=== PATIENT | female | born 1970 | race Caucasian/White ===

== ENCOUNTER 2022-03-18 08:13 | Outpatient (CLI) | payer MEDICARE, SELFPAY ==
[2022-03-18 13:53] LABS: Iron* 116 ug/dL (37-170)
[2022-03-18 13:58] LABS: Microalbumin Urine 3 mg/dL
[2022-03-18 13:59] LABS: Creatinine Urine 88.7 mg/dL; Microalbumin Creatinine Ratio 30 mg/g (0-30)
[2022-03-18 14:18] LABS: Albumin* 4.3 g/dL (3.3-5.0); Chloride* 103 mmol/L (96-114)
[2022-03-18 14:19] LABS: Potassium* 4.5 mmol/L (3.6-5.1); Sodium* 140 mmol/L (135-149)
[2022-03-18 14:21] LABS: Alkaline Phosphatase* 80 U/L (40-150); Aspartate Amino Transferase* 28 U/L (12-35); Bilirubin Total* 0.5 mg/dL (0.1-1.5); Blood Urea Nitrogen* 25 mg/dL (7-30); Carbon Dioxide* 30 mmol/L (20-32); Cholesterol* 202 mg/dL (90-199); Creatinine* 0.6 mg/dL (0.5-1.5); Estimated Glomerular Filt Rate 109 ml/min; Total Protein* 7.1 g/dL (6.0-8.3)
[2022-03-18 14:22] LABS: Alanine Aminotransferase* 29 U/L (4-35); Calcium* 9.5 mg/dL (8.4-10.6); Glucose* 147 mg/dL (60-115); HDL Cholesterol* 68 mg/dL (>=50); LDL Cholesterol Calculated 107 mg/dL (<100); Triglycerides* 135 mg/dL (40-149)
[2022-03-18 14:27] LABS: Ferritin* 13.4 ng/mL (11.1-264.0)
[2022-03-18 14:44] LABS: Vitamin B12* 880 pg/mL (243-894)
== END 2022-03-18 08:14 | disposition home or self-care (01) ==
PROVIDERS: PCP Family Medicine; Visit Provider Family Medicine
DX: Z00.00 Encounter for general adult medical examination without abnormal findings (principal); D64.9 Anemia, unspecified; I10 Essential (primary) hypertension; N12 Tubulo-interstitial nephritis, not specified as acute or chronic; E11.40 Type 2 diabetes mellitus with diabetic neuropathy, unspecified; E78.00 Pure hypercholesterolemia, unspecified; Z98.84 Bariatric surgery status
CPT/HCPCS: 80053; 80061; 82043; 82570; 82607; 82728; 83540; 87086; 87186

== ENCOUNTER 2022-05-06 12:50 | Outpatient (CLI) | payer MEDICARE, SELFPAY | END 2022-05-06 12:51 | disposition home or self-care (01) | LOC: NFLDREF 05-07 21:56 | PROVIDERS: PCP Family Medicine; Visit Provider Family Medicine | DX: R30.0 Dysuria (principal); E11.40 Type 2 diabetes mellitus with diabetic neuropathy, unspecified; E78.00 Pure hypercholesterolemia, unspecified; D64.9 Anemia, unspecified; G47.00 Insomnia, unspecified; N39.0 Urinary tract infection, site not specified; N95.1 Menopausal and female climacteric states | CPT/HCPCS: 87086; 87186 ==

== ENCOUNTER 2022-06-03 08:11 | Outpatient (CLI) | payer MEDICARE, SELFPAY ==
--- NOTE | 2022-06-03 08:45 | CRLHL7_ITS ---
For Patients: As a result of the Century Cures Act, medical imaging exams and procedure reports are released immediately into your electronic medical record. You may view this report before your referring provider. If you have questions, please contact your health care provider. BILATERAL SCREENING MAMMOGRAM WITH COMPUTER-AIDED DETECTION TECHNIQUE: CC and MLO views were obtained. These mammographic images have been obtained using full-field digital technique. These mammographic images were interpreted with the benefit of computer-aided detection. COMPARISON FILM: 02/20/21, 08/05/18. FINDINGS: The breasts are almost entirely fatty. IMPRESSION: There is no radiographic evidence for malignancy. ASSESSMENT: BI-RADS Category 1: Negative RECOMMENDATION: Routine screening mammogram in 1 year. A lay language report of this examination will be provided to the patient. CARLOS COOPER M.D. Diagnostic Radiologist [email or web address] Transcribed: 3:[address]/Dictated by: Carlos Cooper MD @ 06/11/2022 11:53:00 AM (Electronically Signed)
== END 2022-06-03 08:12 | disposition home or self-care (01) ==
LOC: MAMMO 08:12
PROVIDERS: PCP Family Medicine; Visit Provider Family Medicine
DX: Z12.31 Encounter for screening mammogram for malignant neoplasm of breast (principal)
CPT/HCPCS: 77067

== ENCOUNTER 2022-09-13 07:52 | Outpatient (CLI) | payer MEDICARE, SELFPAY | END 2022-09-13 07:53 | disposition home or self-care (01) | LOC: NFLDREF 09-15 02:21 | PROVIDERS: PCP Family Medicine; Referring Provider Family Medicine; Visit Provider Family Medicine | DX: E11.40 Type 2 diabetes mellitus with diabetic neuropathy, unspecified (principal); E78.00 Pure hypercholesterolemia, unspecified; I10 Essential (primary) hypertension; Z79.899 Other long term (current) drug therapy | CPT/HCPCS: 80053; 80061 ==

== ENCOUNTER 2023-01-06 08:15 | Outpatient (REF) | payer MEDICARE, SELFPAY | END 2023-01-06 08:16 | disposition home or self-care (01) | LOC: NFLDREF 08:15 | PROVIDERS: PCP Family Medicine; Referring Provider Family Medicine; Visit Provider Family Medicine | DX: E78.00 Pure hypercholesterolemia, unspecified (principal); I10 Essential (primary) hypertension; E11.9 Type 2 diabetes mellitus without complications | CPT/HCPCS: 80053; 80061 ==

== ENCOUNTER 2023-03-13 11:29 | Outpatient (CLI) | payer MEDICARE, SELFPAY ==
--- OUTSIDE RECORDS SUMMARY | 2023-03-14 00:53 | XMS_ITS | Encounter Summary ---
Author Name Unknown Organization [facility] Address [address] [place] [id number] Care Team Providers Care Lasting Machine Operator Name Role Phone Jovan Barr MD Primary Care Provider [phone] Encounter Details Date Type Department Care Team (Latest Contact Info) Description 11/06/2022 Travel Social History Tobacco Use Types Packs/Day Years Used Date Smoking Tobacco: Never Assessed Adolescent Education Answer Date Record ed Getting School Help Needed Not on file 11/07 Sex and Gender Information Value Date Recorded Sex Assigned at Not on file Gender Identity Not on file Sexual Orientation Not on file COVID-19 Exposure Response Date Recorded In the last 10 days, have yo u been in contact with someone who was confirmed or suspected to have Coronavirus/COVID-19? No / Unsure 11/06/2022 5:59 PM CDT documented as of this encounter Plan of Treatment Not on file documented as of this encounter Visit Diagnoses Not on filedocumented in this encounter Care Teams Lasting Machine Operator Relationship Specialty Start Date End Date Jovan Barr MD [facility] [address] [address] PCP - General Family Medicine 11/06/22 documented as of this encounter
--- OUTSIDE RECORDS SUMMARY | 2023-03-14 00:53 | XMS_ITS | Clinical Summary ---
Author Name Unknown Organization [facility] Address [place], [place] [address] Care Team Providers Care Drier Name Role Phone Jovan Barr MD Primary Care Provider Allergies Active Allergy Reactions Criticality Noted Date Comments Aspirin *Unknown - Follow up needed Medium 11/01/19 23 Milk *Unknown - Follow up needed High 11/01/19 23 Medications Medication Sig Dispensed Refills Start Date End Date Status carvedilol (COREG) 3.125 mg tab as half tablet Take 6.25 mg by mouth two times daily with meals. 0 Active ciprofloxacin HCl (Cipro) 500 mg tablet Take 500 mg by mouth two times daily. 0 Active ferrous sulfate 325 mg delayed release tablet Take 325 mg by mouth once daily. 0 Active insulin aspart, niacinamide, (FIASP FLEXTOUCH U-100 INSULIN SUBQ) Inject subcutaneous. 1 sliding scale dose subcut - useasdirected 0 Active ixcreptxsyxy-cho-m leelee-FA-vit K (Bariatric Multivitamins) 45 mg iron- 800 mcg-120 mcg cap Take by mouth once daily. 0 Active omeprazole (PRILOSEC) 40 mg Delayed-Release capsule Take 40 mg by mouth once daily. 0 Active rosuvastatin (CRESTOR) 20 mg tablet Take 20 mg by mouth once daily. 0 Active SUMATRIPTAN SUCCINATE ORAL Take by mouth. Take 1 tab at onset of headache, if no relief may repeat 1 tab after at least 2 hours; max 4 tabs/24 hr PO Give at minimum 2hrs apart. Max Dose: 200mg per 24hrs. 0 Active tramadol HCl (TRAMADOL ORAL) Take 50 mg by mouth 2 times daily if needed. 0 Active zolpidem (AMBIEN) 10 mg tablet Take 10 mg by mouth at bedtime if needed for Sleep. 0 Active lisinopriL (PRINIVIL; ZESTRIL) 10 mg tablet Take 10 mg by mouth once daily. 0 Active oxyCODONE (ROXICODONE) 5 mg immediate release tabletIndications: Kidney stone Take 1 Tablet (5 mg) by mouth every 6 hours if needed for Pain. 5 Tablet 0 2022 Active Social History Tobacco Use Types Packs/Day Years Used Date Smoking Tobacco: Never Smokeless Tobacco: Never Sex and Gender Information Value Date Recorded Sex Assigned at Not on file Gender Identity Not on file Sexual Orientation Not on file Obstetrics History Last Filed Vital Signs Vital Sign Reading Time Taken Comments Blood Pressure 177/77 2022 1:56 PM CDT Pulse 69 2022 1:15 PM CDT Temperature 36.3 ??C (97.4 ??F) 2022 1:15 PM CD T Respiratory Rate 16 2022 1:15 PM CDT Oxygen Saturation 98% 2022 1:15 PM CDT Inhaled Oxygen Concentration - - Weight 77.6 kg (171 lb) 2022 7:14 AM CDT Height 170.2 cm (5' 7) 2022 7:14 AM CDT Body Mass Index 26.78 2022 7:14 AM CDT Plan of Treatment Health Maintenance Due Date Last Done Comments COVID-19 vaccine series (#1) 05/02/1971 Tdap 1981 Depression screening for age 12+ 1982 HIV for age 15-65 1985 BMI (ht and wt on same day) for age 18+ 1988 Hepatitis C screening for ag e 18-79 1988 Tetanus booster 1990 Pap test for age 21-65 11/02/1991 Colonoscopy through age 75 11/02/2015 Lipids for age 45-75 11/02/2015 Mammogram for age 45-75 11/02/2015 Zoster (shingles) series for age 50+ (1 of 2) 2020 Influenza for age 50-64 10/11/2022 Pneumococcal series for age 6-64 Aged Out No longer eligible based on patient's age to complete this topic Medical Devices Implanted Type Area Impregnator Helper Device Identifier Shelf Expiration Date Model / Serial / Lot Stent Uret [id number] Percuflex Hydroplus - [id number] Implanted:Qty: 2 on 2022 by Dori Baer MD at [facility] Bilateral: Ureter C Urology 08/05/2025 [id number] / / [id number] Advance Directives Latest Code Status on File Code Status Date Activated Date Inactivated Comments Full Code 2022 1:46 PM 2022 4:11 PM Question Answer Comments Code Status Discussion: Reviewed Preferences Code Status History Code Status Date Activated Date Inactivated Comments Full Code 2022 10:51 AM 2022 1:46 PM Question Answer Comments Code Status Discussion: Unable to Assess Preferences, Provider to review later Full Code 2022 6:53 AM 2022 10:51 AM Shou ld be discussed pre operatively with anesthesia or surgeon Question Answer Comments Code Status Discussion: Not Discussed Care Teams Drier Relationship Specialty Start Date End Date Jovan Barr MD [address] [place] [address] PCP - General Family Practice 10/18/22
--- OUTSIDE RECORDS SUMMARY | 2023-03-14 00:53 | XMS_ITS | Referral Summary ---
Author Name Unknown Organization [facility] Address [address] [place] [address] Care Team Providers Care Public Address Systems Mechanic Name Role Phone Jovan Barr MD Primary Care Provider [phone] Allergies Active Allergy Reactions Criticality Noted Date Comments Aspirin 11/06/2022 Nsaids 11/06/2022 Social History Tobacco Use Types Packs/Day Years Used Date Smoking Tobacco: Never Assessed Adolescent Education Answer Date Record ed Getting School Help Needed Not on file 11/07 Sex and Gender Information Value Date Recorded Sex Assigned at Not on file Gender Identity Not on file Sexual Orientation Not on file Last Filed Vital Signs Vital Sign Reading Time Taken Comments Blood Pressure 122/90 11/06/2022 10:00 PM CDT Pulse 124 11/06/2022 10:00 PM CDT Temperature 36.2 ??C (97.2 ??F) 11/06/2022 6:15 PM CD T Respiratory Rate 18 11/06/2022 6:15 PM CDT Oxygen Saturation 99% 11/06/2022 10:00 PM CDT Inhaled Oxygen Concentration - - Weight - - Height - - Body Mass Index - - Plan of Treatment Not on file Care Teams Public Address Systems Mechanic Relationship Specialty Start Date End Date Jovan Barr MD [facility] [address] [address] PCP - General Family Medicine 11/06/22
--- OUTSIDE RECORDS SUMMARY | 2023-03-14 00:53 | XMS_ITS | Encounter Summary ---
Author Name Unknown Organization [place] Address [facility] [place] [address] Care Team Providers [facility] [employer] Floorperson Name Role Phone Jovan Barr MD Primary Care Provider [phone] Reason for Visit * Reason Comments Post-op Problem Encounter Details Date Type Department Care Team (Late st Contact Info) Description 11/06/2022 6:49 PM CDT - 11/06/2022 10:30 PM CDT Emergency [facility] Emergency Dept [address] [place] [address] Angela Parson MD [facility] [address] [place], [place] [id number] Abdominal pain, unspecified abdominal location Discharge Disposition: Left Against Medical Advice Social History Tobacco Use Types Packs/Day Years [...] PM CDT documented as of this encounter Last Filed Vital Signs Vital Sign Reading Time Taken Comments Blood Pressure 122/90 11/06/2022 10:00 PM CDT Pulse 124 11/06/2022 10:00 PM CDT Temperature 36.2 ??C (97.2 ??F) 11/06/2022 6:15 PM CD T Respiratory Rate 18 11/06/2022 6:15 PM CDT Oxygen Saturation 99% 11/06/2022 10:00 PM CDT Inhaled Oxygen Concentration - - Weight - - Height - - Body Mass Index - - documented in this encounter Discharge Instructions * Discharge Instructions* Angela Parson MD - 11/06/2022 10:17 PM CDT Please follow up with your urologist gloria Your urine is pending. Please check your MyChart for results * Attachments The following attachments cannot be sent through Care Everywhere. * Abdominal Pain (Colombian) documented in this encounter ED Notes * Shani Galan RN - 11/06/2022 10:30 PM CDT Pt left without discharge paperwork * Deedee Garcia MD - 11/06/2022 7:03 PM CDT PIT/Triage Evaluation Patient presented with post operation problem. She reports that she got a kidney stone removal and bilateral stents placed on 11/01/22. Today she had stents removed at 1130. She has been in pain afteran hour and been crying. The pain is on her right flank. No pain on the left side. She reports vomiting and nausea. Denies fever. Exam is notable for: General: No distress Abdomen: Soft, non-tender Respiratory: No tachypnea Cardiovascular: Equal pulses, brisk cap refill Extremities: Moving all extremities Appropriate interventions for symptom management were initiated if applicable. Appropriate diagnostic tests were initiated if indicated. Important information for subsequent clinician: Bilateral ureteral stents pulled today. Labs and imaging are ordered. I briefly evaluated the patient and developed an initial plan of care. I discussed this plan and explained that this brief interaction does not constitute a full evaluation. Patient/family understands that they should wait to be fully evaluated and discuss any test results with another clinician prior to leaving the hospital. Deedee Garcia MD 11/06/22 1909 * Emilia Christianson RN - 11/06/2022 6:13 PM CDT Presents to triage with c/o R flank and R sided abdominal pain. Patient had previous kidney stones and had stents in bilateral kidneys that were removed today. Since that time patient has had severe R flank and abdominal pain and n/v * Angela Parson MD - 11/06/2022 5:59 PM CDT History Chief Complaint: Post-op Problem The history is provided by the patient. Lynda Rios is a 52 year old female with S/P bilateral kidney stone removal who presents to the ED for evaluation of post-op pain. Lynda reports she had bilateral ureteral stents removed today [id number] at [facility]. She states right-sided flank and abdominal pain onsetabout 30 minutes later. She endorses nausea, vomiting, and urinary frequency. She was told by her urologist that the pain won't be severe, but she states the pain has been terrible since the procedure. She denies any hematuria, fever, or urgency. Independent Historian: None - Patient Only Review of External Notes: I reviewed the patient's nephrolithotomy note from 11/01/[address] Baer at [place]. Medications: Coreg Cipro Insulin Prilosec Crestor Prinivil Past Medical History: Type 1 diabetes mellitus with diabetic neuropathy, with long-term current use of insulin Chronic UTI Migraine Chronic shoulder pain Iron deficiency anemia Insomnia Recurrent pyelonephritis Bilateral nephrolithiasis Hypercholesterolemia Hypertension MDD JAROD Hiatal hernia Past Surgical History: Gastric bypass Tubal ligation Lap cholecystectomy Cystoscopy, bilateral ureteroscopy, left ureteral laser lithotripsy, bilateral ureteral stent placement, bilateral retrograde pyelogram Physical Exam Patient Vitals for the past 24 hrs: BP Temp Temp src Pulse Resp SpO2 11/06/22 2200 (!) 122/90 -- -- (!) 124 -- 99 % 11/06/222129 127/88 -- -- 120 -- 98 % 11/06/222128 -- -- -- -- -- 99 % 11/06/222127 -- -- -- -- -- 100 % 11/06/222125 118/87 -- -- -- -- -- 11/06/225 105/72 97.2 ??F (36.2 ??C) Temporal 112 18 99 % Physical Exam Patient declined exam Emergency Department Course Imaging: CT Abdomen Pelvis w/o Contrast Final Result IMPRESSION: 1. Two small bilateral nonobstructing renal stones. No ureteric stones. There is urothelial thickening in the ureters bilaterally as well as renal pelves suggesting ascending infection pyelitis. Mildsoft tissue stranding adjacent to the lower pole of each kidney. 2. Air in the urinary bladder presumably due to recent instrumentation. 3. Normal appendix. Previous Greta-en-Y gastric bypass. Report per radiology Laboratory: Labs Ordered and Resulted from Time of ED Arrival to Time of ED Departure COMPREHENSIVE METABOLIC PANEL - Abnormal Result Value Sodium 132 (*) Potassium 5.8 (*) Carbon Dioxide (CO2) 23 Anion Gap 14 Urea Nitrogen 28.0 (*) Creatinine 0.83 GFR Estimate 84 Calcium 9.1 Chloride 95 (*) Glucose 208 (*) Alkaline Phosphatase AST ALT Protein Total 7.1 Albumin 4.2 Bilirubin Total 0.3 CBC WITH PLATELETS AND DIFFERENTIAL - Abnormal WBC Count 9.7 RBC Count 5.24 (*) Hemoglobin 16.0 (*) Hematocrit 47.6 (*) MCV 91 MCH 30.5 MCHC 33.6 RDW 11.5 Platelet Count 348 % Neutrophils 69 % Lymphocytes 21 % Monocytes 9 % Eosinophils 1 % Basophils 0 % Immature Granulocytes 0 NRBCs per 100 WBC 0 Absolute Neutrophils 6.7 Absolute Lymphocytes 2.1 Absolute Monocytes 0.9 Absolute Eosinophils 0.1 Absolute Basophils 0.0 Absolute Immature Granulocytes 0.0 Absolute NRBCs 0.0 COMPREHENSIVE METABOLIC PANEL - Abnormal Sodium 130 (*) Potassium 7.4 (*) Carbon Dioxide (CO2) 24 Anion Gap 10 Urea Nitrogen 28.6 (*) Creatinine 0.81 GFR Estimate 87 Calcium 9.0 Chloride 96 (*) Glucose 215 (*) Alkaline Phosphatase AST ALT Protein Total 7.5 Albumin 4.0 Bilirubin Total 0.4 COMPREHENSIVE METABOLIC PANEL - Abnormal Sodium 133 (*) Potassium 4.7 Carbon Dioxide (CO2) 24 Anion Gap 13 Urea Nitrogen 28.7 (*) Creatinine 0.86 GFR Estimate 81 Calcium 9.3 Chloride 96 (*) Glucose 215 (*) Alkaline Phosphatase 121 (*) AST 19 ALT 21 Protein Total 7.1 Albumin 4.5 Bilirubin Total 0.3 ROUTINE UA WITH MICROSCOPIC REFLEX TO CULTURE Procedures None Emergency Department Course & Assessments: Interventions: Medications ondansetron (ZOFRAN) injection 4 mg (4 mg Intravenous $Given 11/06/22 182) ondansetron (ZOFRAN) injection 4 mg (4 mg Intravenous $Given 11/06/222134) sodium chloride 0.9% BOLUS 1,000 mL (0 mLs Intravenous Stopped 11/06/222228) HYDROmorphone (DILAUDID) injection 1 mg (0 mg Intravenous Return to Cabinet 11/06/222229) Assessments: 2204 I obtained history as noted above. The patient denies exam and is requesting to leave [facility] due to long wait time. She will provide urine for UA and go home. She will check her MyChart for resultsof her UA. Independent Interpretation (X-rays, CTs, rhythm strip): None Consultations/Discussion of Management or Tests: None Social Determinants of Health affecting care: None Disposition: The patient left A. Impression & Plan Medical Decision Making: Upon initial evaluation, patient was requesting discharge given the long wait time. I reviewed the results with her but she did not want to wait for the urinalysis. Given that she is having severe pain and tachycardia, she did agree to leave a urine sample but did not want to wait for IV pain medication with the results. She is aware that this could be an infection given the CT appearance. She told us the name of the pharmacy and I agreed to send a prescription to the pharmacy showed infection shows up on the urine. She voiced understanding she needs to follow-up with urologist GLORIA. She declined any further intervention at this point. I discussed with her that she needs to return if symptoms worsen or if she has fever. She is discharged at her request without results. Her urinalysis did come back showing signs of infection. I did send an electronic prescription of cefdinir. I attemptedto call the patient with the results but the call went to her voicemail. Diagnosis: ICD-10-CM 1. Abdominal pain, unspecified abdominal location R10.9 Discharge Medications: There are no discharge medications for this patient. Scribe Disclosure: Sergio Chavarria Hailie, am serving as a scribe at 10:09 PM on 11/06/2022 to document services personally performed by Angela Parson MD based on my observations and the provider's statements to me. 11/06/2022 Angela Parson MD Cheng, Wenlan, MD 11/06/22 [id number] documented in this encounter Plan of Treatment Not on file documented as of this encounter Procedures Procedure Name Priority Date/Time Associated Diagnosis Comments ROUTINE UA WITH MICROSCOPIC REFLEX TO CULTURE STAT 11/06/2022 10:12 PM CDT URINE CULTURE STAT 11/06/2022 10:12 PM CDT COMPREHENSIVE METABOLIC PANEL STAT 11/06/2022 8:[address] ABDOMEN PELVIS W/O CONTRAST STAT 11/06/2022 7:36 PM CDT COMPREHENSIVE METABOLIC PANEL STAT 11/06/2022 7:22 PM CDT EXTRA TUBE STAT 11/06/2022 6:23 PM CDT EXTRA RED TOP TUBE STAT 11/06/2022 6: 23 PM CDT EXTRA BLUE TOP TUBE STAT 11/06/2022 6 :23 PM CDT CBC WITH PLATELETS AND DIFFERENTIAL STAT 11/06/2022 6:23 PM CDT CBC WITH PLATELETS & DIFFERENTIAL STAT 11/06/2022 6:23 PM CDT COMPREHENSIVE METABOLIC PANEL STAT 11/06/2022 6:23 PM CDT documented in this encounter Results * Urine Culture (11/06/2022 10:12 PM CDT) Culture <10,000 CFU/mL Urogenital nicole GENIE 11/08/2022 5:15 AM CDT [facility] Urine URINE SPECIMEN OBTAINED BY CLEAN CATCH PROCEDURE / Unknown Non-blood Collection / Unknown 11/06/2022 10:12 PM CDT 11/06/2022 10:50 PM CDT Edi Foster MD LAB - MICRO GENERAL ORDERABLES [facility] Inf. Diseases Diag. Lab [address] [facility], Room [address] [place] [id number] [phone] * (ABNORMAL) UA with Microscopic reflex to Culture (11/06/2022 10:12 PM CDT) Color Urine [place](A) Colorless, Straw, Light Yellow, Yellow 11/06/2022 10:50 PM CDT LABORATORY Appearance Urine Cloudy(A) Clear 11/07/19 23 10:50 PM CDT LABORATORY Glucose Urine 30(A) Negative mg/dL 11/06/2022 10:50 PM CDT LABORATORY Bilirubin Urine Negative Negative 10:50 PM CDT LABORATORY Ketones Urine 20(A) Negative mg/dL 11/06/2022 10:50 PM CDT LABORATORY Specific [place] Urine 1.020 1.003 - 1.035 11/06/2022 10:50 PM CDT LABORATORY Blood Urine Large(A) Negative 11/06/2022 10:50 PM CDT LABORATORY pH Urine 6.0 5.0 - 7.0 11/06/2022 10:50 PM CDT LABORATORY Protein Albumin Urine 200(A) Negative mg/dL 11/06/2022 10:50 PM CDT LABORATORY Urobilinogen Urine Normal Normal, 2.0 mg/dL 11/06/2022 10:50 PM CDT LABORATORY Nitrite Urine Negative Negative 11/06/2022 10:50 PM CDT LABORATORY Leukocyte Esterase Urine Moderate(A) Negative 11/06/2022 10:50 PM CDT LABORATORY WBC Clumps Urine Present(A) None Seen /HPF 11/06/2022 10:50 PM CDT LABORATORY Budding Yeast Urine Few(A) None Seen /HPF 11/06/2022 10:50 PM CDT [facility] RBC Urine >182(H) <=2 /HPF 11/06/2022 10:50 PM CDT [facility] WBC Urine >182(H) <=5 /HPF 11/06/2022 10:50 PM CDT [facility] Urine URINE SPECIMEN OBTAINED BY CLEAN CATCH PROCEDURE / Unknown Non-blood Collection / Unknown 11/06/2022 10:12 PM CDT 11/06/2022 10:16 PM CDT Narrative [facility] - 11/06/2022 10:50 PM CDT Urine Culture ordered based on laboratory criteria Edi Foster MD LAB - URINE ORDERABL ES LABORATORY [facility] Lab [address] [facility] (1st [facility], no room number) [place] [address], [facility] [phone] * (ABNORMAL) Comprehensive metabolic panel (11/06/2022 8:10 PM CDT) [facility] Signature Sodium 133(L) 135 - 145 mmol/L 11/06/2022 8:39 PM CDT [facility] Comment:Reference intervals for this test were updated on 11/05/2022 to more accurately reflect our healthy population. There may be differences in the flagging of prior results with similar values performed with this method. Interpretation of those prior results can be made in the context of the updated reference intervals. Potassium 4.7 3.4 - 5.3 mmol/L 11/06/2022 8:39 PM CDT LABORATORY Carbon Dioxide (CO2) 24 22 - 29 mmol/L 11/06/2022 8:39 PM CDT [facility] Anion Gap 13 7 - 15 mmol/L 11/06/2022 8:39 PM CDT [facility] Urea Nitrogen 28.7(H) 6.0 - 20.0 mg/dL 11/06/2022 8:39 PM CDT [facility] Creatinine 0.86 0.51 - 0.95 mg/dL 11/06/2022 8:39 PM CDT [facility] GFR Estimate 81 >60 mL/min/1. 73m2 11/06/2022 8:39 PM CDT [facility] Calcium 9.3 8.6 - 10.0 mg/dL 11/06/2022 8:39 PM CDT [facility] Chloride 96(L) 98 - 107 mmol/L 11/06/2022 8:39 PM CDT [facility] Glucose 215(H) 70 - 99 mg/dL 11/06/2022 8:39 PM CDT [facility] Alkaline Phosphatase 121(H) 35 - 104 U/L 11/06/2022 8:39 PM CDT [facility] AST 19 0 - 45 U/L 11/06/2022 8:39 PM CDT [facility] Comment:Reference intervals for this test were updated on 07/22/2022 to more accurately reflect our healthy population. There may be differences in the flagging of prior results with similar values performed with this method. Interpretation of those prior results can be made in the context of the updated reference intervals. ALT 21 0 - 50 U/L 11/06/2022 8:39 PM CDT [facility] Comment:Reference intervals for this test were updated on 07/22/2022 to more accurately reflect our healthy population. There may be differences in the flagging of prior results with similar values performed with this method. Interpretation of those prior results can be made in the context of the updated reference intervals. Protein Total 7.1 6.4 - 8.3 g/dL 11/06/2022 8:39 PM CDT [facility] Albumin 4.5 3.5 - 5.2 g/dL 11/06/2022 8:39 PM CDT [facility] Bilirubin Total 0.3 <=1.2 mg/dL 11/06/2022 8:39 PM CDT [facility] Blood STRUCTURE OF RIGHT UPPER LIMB / Unknown Venipuncture / Unknown 11/06/2022 8:10 PM CDT 11/06/2022 8:18 PM CDT Angela Parson MD LAB - BLOOD ORDERABL ES LABORATORY [facility] Acute Care Lab [address] [facility] (1st floor, no room number) [place] [address], [place] [phone] * CT Abdomen Pelvis w/o Contrast (11/06/2022 7:36 PM CDT) Anatomical Region Laterality Modality Abdomen/Pelvis, SUBRAD CT CARIN DY, UMP CT ABDOMEN PELVIS, RAD CT Computed Tomography 11/06/2022 7:36 PM CDT Impressions 11/06/2022 7:55 PM CDT IMPRESSION: 1. ??Two small bilateral nonobstructing renal stones. No ureteric stones. There is urothelial thickening in the ureters bilaterally as well as renal pelves suggesting ascending infection pyelitis. Mild soft tissue stranding adjacent to the lower pole of each kidney. 2. ??Air in the urinary bladder presumably due to recent instrumentation. 3. ??Normal appendix. Previous Greta-en-Y gastric bypass. Narrative 11/06/2022 7:55 PM CDT EXAM: CT ABDOMEN PELVIS W/O CONTRAST LOCATION: [facility] DATE: 11/06/2022 INDICATION: ureter stents removed worsening pain COMPARISON: None. TECHNIQUE: CT scan of the abdomen and pelvis was performed without IV contrast. Multiplanar reformats were obtained. Dose reduction techniques were used. CONTRAST: None. FINDINGS: LOWER CHEST: Normal. HEPATOBILIARY: Normal. PANCREAS: Normal. SPLEEN: Normal. ADRENAL GLANDS: Normal. KIDNEYS/BLADDER: 3 mm stone in the upper pole of the right kidney. Tiny punctate stone in the mid left kidney. There are a few additional tiny punctate stones in the right kidney. Urothelial thickening in the ureters and renal pelves bilaterally suggest possible pyelitis. Soft tissue stranding adjacent to the lower poles of each kidney. BOWEL: Normal appendix. Greta-en-Y gastric bypass. LYMPH NODES: Normal. VASCULATURE: Unremarkable. PELVIC ORGANS: Air in the urinary bladder presumably due to recent ischemic dilatation. MUSCULOSKELETAL: Normal. Procedure Note Jerardo Parson MD - 11/06/2022 EXAM: CT ABDOMEN PELVIS W/O CONTRAST LOCATION: [facility] DATE: 11/06/2022 INDICATION: ureter stents removed worsening pain COMPARISON: None. TECHNIQUE: CT scan of the abdomen and pelvis was performed without IVcontrast. Multiplanar reformats were obtained. Dose reduction techniqueswere used. CONTRAST: None. FINDINGS: LOWER CHEST: Normal. HEPATOBILIARY: Normal. PANCREAS: Normal. SPLEEN: Normal. ADRENAL GLANDS: Normal. KIDNEYS/BLADDER: 3 mm stone in the upper pole of the right kidney. Tinypunctate stone in the mid left kidney. There are a few additional tinypunctate stones in the right kidney. Urothelial thickening in the uretersand renal pelves bilaterally suggest possible pyelitis. Soft tissue stranding adjacent to the lower poles ofeach kidney. BOWEL: Normal appendix. Greta-en-Y gastric bypass. LYMPH NODES: Normal. VASCULATURE: Unremarkable. PELVIC ORGANS: Air in the urinary bladder presumably due to recentischemic dilatation. MUSCULOSKELETAL: Normal. IMPRESSION: 1. Two small bilateral nonobstructing renal stones. No ureteric stones.There is urothelial thickening in the ureters bilaterally as well as renalpelves suggesting ascending infection pyelitis. Mild soft tissue strandingadjacent to the lower pole of each kidney. 2. Air in the urinary bladder presumably due to recent instrumentation. 3. Normal appendix. Previous Greta-en-Y gastric bypass. Edi Foster MD [facility] CT ORDERABLES * (ABNORMAL) Comprehensive metabolic panel (11/06/2022 7:22 PM CDT) [facility] Sodium 130(L) 135 - 145 mmol/L 11/06/2022 8:03 PM CDT LABORATORY Comment:Reference intervals for this test were updated on 11/05/2022 to more accurately reflect our healthy population. There may be differences in the flagging of prior results with similar values performed with this method. Interpretation of those prior results can be made in the context of the updated reference intervals. Potassium 7.4(HH) 3.4 - 5.3 mmol/L 11/06/2022 8:03 PM CDT LABORATORY Comment:Specimen moderately hemolyzed. The reported potassium value *IS LIKELY TO BE FALSELY ELEVATED* and should be interpreted with caution for clinical decision making. Analysis of a non-hemolyzed specimen (i.e. re-draw) may result in a lower potassium value. Carbon Dioxide (CO2) 24 22 - 29 mmol/L 11/06/2022 8:03 PM CDT [facility] Anion Gap 10 7 - 15 mmol/L 11/06/2022 8:03 PM CDT LABORATORY Urea Nitrogen 28.6(H) 6.0 - 20.0 mg/dL 11/06/2022 8:03 PM CDT LABORATORY Creatinine 0.81 0.51 - 0.95 mg/dL 11/06/2022 8:03 PM CDT [facility] GFR Estimate 87 >60 mL/min/1. 73m2 11/06/2022 8:03 PM CDT [facility] Calcium 9.0 8.6 - 10.0 mg/dL 11/06/2022 8:03 PM CDT [facility] Chloride 96(L) 98 - 107 mmol/L 11/06/2022 8:03 PM CDT [facility] Glucose 215(H) 70 - 99 mg/dL 11/06/2022 8:03 PM CDT [facility] Alkaline Phosphatase 11/06/2022 8:03 PM CDT [facility] Comment:Specimen is hemolyze d which can falsely elevate AST. Analysis of a non-hemolyzed specimen may result in a lower value. AST 11/06/2022 8:03 PM CDT [facility] Comment: Specimen is hemolyzed which can falsely elevate AST. Analysis of a non-hemolyzed specimen may result in a lower value. Reference intervals for this test were updated on 07/22/2022 to more accurately reflect our healthy population. There may be differences in the flagging of prior results with similar values performed with this method. Interpretation of those prior results can be made in the context of the updated reference intervals. ALT 11/06/2022 8:03 PM CDT [facility] Comment: Specimen is hemolyzed which can falsely elevate AST. Analysis of a non-hemolyzed specimen may result in a lower value. Reference intervals for this test were updated on 07/22/2022 to more accurately reflect our healthy population. There may be differences in the flagging of prior results with similar values performed with this method. Interpretation of those prior results can be made in the context of the updated reference intervals. ?? Protein Total 7.5 6.4 - 8.3 g/dL 11/06/2022 8:03 PM CDT [facility] Albumin 4.0 3.5 - 5.2 g/dL 11/06/2022 8:03 PM CDT [facility] Bilirubin Total 0.4 <=1.2 mg/dL 11/06/2022 8:03 PM CDT [facility] Blood VENOUS LINE / Unknown Venipuncture / Unknown 11/06/2022 7:22 PM CDT 11/06/2022 7:26 PM CDT Deedee Garcia MD LAB - BLOOD LEEANN DYER [facility] Care Lab [address] Lab (1st floor, no room number) [place] [address], [facility] [phone] * Extra Red Top Tube (11/06/2022 6:23 PM CDT) Hold Specimen [facility] 11/06/2022 7:31 PM CDT [facility] Blood STRUCTURE OF LEFT UPPER LIMB / Unknown Venipuncture / Unknown 11/06/2022 6:23 PM CDT 11/06/2022 6:30 PM CDT Angela Parson MD LAB - BLOOD ORDERABL ES Performing Organization Address [facility]/ZIP Co de Phone Number [facility] Lab [address] Lab (1st floor, no room number) [place] [address], [facility] [phone] * Extra Blue Top Tube (11/06/2022 6:23 PM CDT) Hold Specimen [facility] 11/06/2022 7:31 PM CDT [facility] Blood STRUCTURE OF LEFT UPPER LIMB / Unknown Venipuncture / Unknown 11/06/2022 6:23 PM CDT 11/06/2022 6:30 PM CDT Angela Parson MD LAB - BLOOD ORDERABL ES Performing Organization Address City/[facility]/ZIP Co de Phone Number [facility] Care Lab [address] Lab (1st floor, no room number) [place] [address], [facility] [phone] * (ABNORMAL) CBC with platelets and differential (11/06/2022 6:23 PM CDT) WBC Count 9.7 4.0 - 11.0 10e3/uL 11/06/2022 6:45 PM CDT [facility] RBC Count 5.24(H) 3.80 - 5.20 10e6/uL 11/06/2022 6:45 PM CDT [facility] Hemoglobin 16.0(H) 11.7 - 15.7 g/dL 11/06/2022 6:45 PM CDT [facility] Hematocrit 47.6(H) 35.0 - 47.0 % 11/06/2022 6:45 PM CDT [facility] MCV 91 78 - 100 fL 11/06/2022 6:45 PM CDT [facility] MCH 30.5 26.5 - 33.0 pg 11/06/2022 6:45 PM CDT [facility] MCHC 33.6 31.5 - 36.5 g/dL 11/06/2022 6:45 PM CDT [facility] RDW 11.5 10.0 - 15.0 % 11/06/2022 6:45 PM CDT [facility] Platelet Count 348 150 - 450 10e3/uL 11/06/2022 6:45 PM CDT [facility] % Neutrophils 69 % 11/06/2022 6:45 PM CDT [facility] % Lymphocytes 21 % 11/06/2022 6:45 PM CDT [facility] % Monocytes 9 % 11/06/2022 6:45 PM CDT [facility] % Eosinophils 1 % 11/06/2022 6:45 PM CDT [facility] % Basophils 0 % 11/06/2022 6:45 PM CDT [facility] % Immature Granulocytes 0 % 11/06/2022 6:45 PM CDT [facility] NRBCs per 100 WBC 0 <1 /100 023 6:45 PM CDT [facility] Absolute Neutrophils 6.7 1.6 - 8.3 10e3/uL 11/06/2022 6:45 PM CDT [facility] Absolute Lymphocytes 2.1 0.8 - 5.3 10e3/uL 11/06/2022 6:45 PM CDT [facility] Absolute Monocytes 0.9 0.0 - 1.3 10e3/uL 11/06/2022 6:45 PM CDT [facility] Absolute Eosinophils 0.1 0.0 - 0.7 10e3/uL 11/06/2022 6:45 PM CDT [facility] Absolute Basophils 0.0 0.0 - 0.2 10e3/uL 11/06/2022 6:45 PM CDT [facility] Absolute Immature Granulocytes 0.0 <=0.4 10e3/uL 11/06/2022 6:45 PM CDT [facility] Absolute NRBCs 0.0 10e3/uL 11/06/2022 6:45 PM CDT [facility] Blood BLOOD SPECIMEN / Unknown Venipuncture / Unknown 11/06/2022 6:23 PM CDT 11/06/2022 6:30 PM CDT Angela Parson MD LAB - BLOOD ORDERABL ES [facility] Acute Care Lab [address] [facility] Lab (1st floor, no room number) [place] [address], [facility] [facility] [phone] * (ABNORMAL) Comprehensive metabolic panel (11/06/2022 6:23 PM CDT) Sodium 132(L) 135 - 145 mmol/L 11/06/2022 7:11 PM CDT [facility] Comment:Reference intervals for this test were updated on 11/05/2022 to more accurately reflect our healthy population. There may be differences in the flagging of prior results with similar values performed with this method. Interpretation of those prior results can be made in the context of the updated reference intervals. Potassium 5.8(H) 3.4 - 5.3 mmol/L 11/06/2022 7:11 PM CDT [facility] Comment:Specimen moderately hemolyzed. The reported potassium value *IS LIKELY TO BE FALSELY ELEVATED* and should be interpreted with caution for clinical decision making. Analysis of a non-hemolyzed specimen (i.e. re-draw) may result in a lower potassium value. Carbon Dioxide (CO2) 23 22 - 29 mmol/L 11/06/2022 7:11 PM CDT [facility] Anion Gap 14 7 - 15 mmol/L 11/06/2022 7:11 PM CDT [facility] Urea Nitrogen 28.0(H) 6.0 - 20.0 mg/dL 11/06/2022 7:11 PM CDT [facility] Creatinine 0.83 0.51 - 0.95 mg/dL 11/06/2022 7:11 PM CDT [facility] GFR Estimate 84 >60 mL/min/1. 73m2 11/06/2022 7:11 PM CDT [facility] Calcium 9.1 8.6 - 10.0 mg/dL 11/06/2022 7:11 PM CDT [facility] Chloride 95(L) 98 - 107 mmol/L 11/06/2022 7:11 PM CDT [facility] Glucose 208(H) 70 - 99 mg/dL 11/06/2022 7:11 PM CDT [facility] Alkaline Phosphatase 11/06/2022 7:11 PM CDT [facility] Comment:Specimen is hemolyze d which can falsely elevate AST. Analysis of a non-hemolyzed specimen may result in a lower value. AST 11/06/2022 7:11 PM CDT [facility] Comment: Specimen is hemolyzed which can falsely elevate AST. Analysis of a non-hemolyzed specimen may result in a lower value. Reference intervals for this test were updated on 07/22/2022 to more accurately reflect our healthy population. There may be differences in the flagging of prior results with similar values performed with this method. Interpretation of those prior results can be made in the context of the updated reference intervals. ALT 11/06/2022 7:11 PM CDT [facility] Comment: Specimen is hemolyzed which can falsely elevate AST. Analysis of a non-hemolyzed specimen may result in a lower value. Reference intervals for this test were updated on 07/22/2022 to more accurately reflect our healthy population. There may be differences in the flagging of prior results with similar values performed with this method. Interpretation of those prior results can be made in the context of the updated reference intervals. ?? Protein Total 7.1 6.4 - 8.3 g/dL 11/06/2022 7:11 PM CDT [facility] Albumin 4.2 3.5 - 5.2 g/dL 11/06/2022 7:11 PM CDT [facility] Bilirubin Total 0.3 <=1.2 mg/dL 11/06/2022 7:11 PM CDT [facility] Blood BLOOD SPECIMEN / Unknown Venipuncture / Unknown 11/06/2022 6:23 PM CDT 11/06/2022 6:30 PM CDT Angela Parson MD LAB - BLOOD ORDERABL ES [facility] Lab [address] [facility] Lab (1st floor, no room number) [place] [address], [facility] [phone] documented in this encounter Visit Diagnoses Diagnosis Abdominal pain, unspecified abdominal location documented in this encounter Administered Medications Inactive Administered Medications - up to 3 most recent administrations Medication Order MAR Action Action Date Dose Rate Site ondansetron (ZOFRAN) injection 4 mg 4 mg, Intravenous, ONCE, Administer over 2-5 Minutes, On Fri11/06/22 at 1825, For 1 dose, Irritant. $Given 11/06/2022 6:25 PM CDT 4 mg ondansetron (ZOFRAN) injection 4 mg 4 mg, Intravenous, ONCE, Administer over 2-5 Minutes, On Fri11/06/22 at 2135, For 1 dose, Irritant. $Given 11/06/2022 9:35 PM CDT 4 mg sodium chloride 0.9% BOLUS 1,000 mL Intravenous, 1,000 mL, ONCE, at 1,000 mL/hr, Administer over 1 Hours, On Fri11/06/22 at 2205, For 1 dose $New Bag 11/06/2022 10:03 PM CDT 1,000 mLs 1000 mL/hr documented in this encounter Active and Recently Administered Medications Times are shown in CDT. Scheduled Medication Order 11/04/2022 11/05/2022 11/06/2022 ondansetron (ZOFRAN) injection 4 mg (COMPLETED) 4 mg, Intravenous, ONCE, Administer over 2-5 Minutes, On Fri11/06/22 at 1825, For 1 dose, Irritant. 1824 ($Given - Provi krystle: Emilia Christianson RN) ondansetron (ZOFRAN) injection 4 mg (COMPLETED) 4 mg, Intravenous, ONCE, Administer over 2-5 Minutes, On Fri11/06/22 at 2135, For 1 dose, Irritant. 2134 ($Given - Provi krystle: Shani Galan RN) sodium chloride 0.9% BOLUS 1,000 mL (COMPLETED) Intravenous, 1,000 mL, ONCE, at 1,000 mL/hr, Administer over 1 Hours, On Fri11/06/22 at 2205, For 1 dose 2202 ($New Bag - Pro vider: Shani Galan RN)2228 (Stopped - Provider: Shani Galan RN) documented in this encounter Care Teams Hotel Casino Floorperson Relationship Specialty Start Date End Date Jovan Barr MD [facility] [address] [address] PCP - General Family Medicine 11/06/22 documented as of this encounter
--- OUTSIDE RECORDS SUMMARY | 2023-03-14 00:53 | XMS_ITS | Clinical Summary ---
Author Name Unknown Organization [place] Address [address] [place] [address] Care Team Providers Care Mechanical Design Engineer Facilities Name Role Phone Jovan Barr MD Primary [...] Mass Index - - Plan of Treatment Health Maintenance Due Date Last Done Comments ADVANCE CARE PLANNING 1970 ANNUAL REVIEW OF HM ORDERS 1970 CT COLONOGRAPHY 1970 FIT 1970 FLEX SIG 1970 HEPATITIS B IMMUNIZATION (1 of 3 - 3-dose series) 1970 MAMMO SCREENING 1970 sDNA (Cologuard) 1970 COVID-19 Vaccine (#1) 05/02/1971 COLONOSCOPY 1980 COLORECTAL CANCER SCREENING 1980 HIV SCREENING 1985 HEPATITIS C SCREENING 1988 MEDICARE ANNUAL WELLNESS VISIT 1988 PAP 11/02/1991 DTAP/TDAP/TD IMMUNIZATION (1 - Tdap) 11/02/1995 LIPID 11/02/2015 ZOSTER IMMUNIZATION (1 of 2) 2020 INFLUENZA VACCINE (#1) 2022 PHQ-2 (once per calendar year) 2023 HPV IMMUNIZATION Aged Out No longer e ligible based on patient's age to complete this topic IPV IMMUNIZATION Aged Out No longer e ligible based on patient's age to complete this topic MENINGITIS IMMUNIZATION Aged Out No l onger eligible based on patient's age to complete this topic Pneumococcal Vaccine: Pediat rics (0 to 5 Years) and At-Risk Patients (6 to 64 Years) Aged Out No longer eligi ble based on patient's age to complete this topic RSV MONOCLONAL ANTIBODY Aged Out No l onger eligible based on patient's age to complete this topic Care Teams Mechanical Design Engineer Facilities Relationship Specialty Start Date End Date Jovan Barr MD [facility] [address] [address] PCP - General Family Medicine 11/06/22
== END 2023-03-13 11:30 | disposition home or self-care (01) ==
LOC: NFLDREF 03-14 00:50
PROVIDERS: PCP Family Medicine; Referring Provider Family Medicine; Visit Provider Family Medicine
DX: E10.40 Type 1 diabetes mellitus with diabetic neuropathy, unspecified (principal); I10 Essential (primary) hypertension; E61.1 Iron deficiency; Z79.899 Other long term (current) drug therapy; Z98.84 Bariatric surgery status; Z13.21 Encounter for screening for nutritional disorder
CPT/HCPCS: 80053; 82306; 82607; 83540; 84443

== ENCOUNTER 2023-04-17 14:23 | Outpatient (CLI) | payer MEDICARE, SELFPAY | END 2023-04-17 14:24 | disposition home or self-care (01) | LOC: NFLDREF 04-30 07:50 | PROVIDERS: PCP Family Medicine; Referring Provider Family Medicine; Visit Provider Family Medicine | DX: E10.40 Type 1 diabetes mellitus with diabetic neuropathy, unspecified (principal); N39.0 Urinary tract infection, site not specified; I10 Essential (primary) hypertension; D64.9 Anemia, unspecified | CPT/HCPCS: 80076; 82043; 82570 ==

== ENCOUNTER 2023-05-02 13:39 | Outpatient (CLI) | payer MEDICARE, SELFPAY | END 2023-05-02 13:40 | disposition home or self-care (01) | LOC: NFLDREF 05-05 06:15 | PROVIDERS: PCP Family Medicine; Referring Provider Family Medicine; Visit Provider Family Medicine | DX: E10.40 Type 1 diabetes mellitus with diabetic neuropathy, unspecified (principal); N39.0 Urinary tract infection, site not specified; R05.9 Cough, unspecified; R32 Unspecified urinary incontinence; J06.9 Acute upper respiratory infection, unspecified | CPT/HCPCS: 87086; 87186 ==

== ENCOUNTER 2023-05-13 17:37 | Outpatient (CLI) | payer MEDICARE, SELFPAY | END 2023-05-13 17:38 | disposition home or self-care (01) | LOC: LKVREF 17:38 | PROVIDERS: PCP Family Medicine; Visit Provider Emergency Medicine | DX: N39.0 Urinary tract infection, site not specified (principal); N12 Tubulo-interstitial nephritis, not specified as acute or chronic | CPT/HCPCS: 87086 ==

== ENCOUNTER 2023-06-16 18:48 | Outpatient (CLI) | payer MEDICARE, SELFPAY ==
--- OUTSIDE RECORDS SUMMARY | 2023-06-16 18:58 | XMS_ITS | Clinical Summary ---
Author Name Unknown Organization [place] Address [address] [place] [address] Care Team Providers Care Director Validation Name Role Phone Jovan Barr MD Primary Care Provider [phone] Allergies Active Allergy Reactions Criticality Noted Date [...] COLONOGRAPHY 1970 FIT 1970 FLEX SIG 1970 MAMMO SCREENING 1970 sDNA (Cologuard) 1970 COLONOSCOPY 1980 COLORECTAL CANCER SCREENING 1980 HIV SCREENING 1985 HEPATITIS C SCREENING 1988 MEDICARE ANNUAL WELLNESS VISIT 1988 HEPATITIS B IMMUNIZATION (1 of 3 - 19+ 3-dose series) 1989 PAP 11/02/1991 DTAP/TDAP/TD IMMUNIZATION (1 - Tdap) 11/02/1995 LIPID 2010 ZOSTER IMMUNIZATION (1 of 2) 2020 COVID-19 Vaccine (1 - 2022-2 4 season) 2022 PHQ-2 (once per calendar year) 2023 INFLUENZA VACCINE (Season Ended) 2023 GLUCOSE 11/06/2025 11/06/2022, 11/06/2022, 11/06/2022 HPV IMMUNIZATION Aged Out No longer e ligible based on patient's age to complete this topic IPV IMMUNIZATION Aged Out No longer e ligible based on patient's age to complete this topic MENINGITIS IMMUNIZATION Aged Out No l onger eligible based on patient's age to complete this topic Pneumococcal Vaccine: Pediatrics (0 to 5 Years) and At-Risk Patients (6 to 64 Years) Aged Out No longer eligible b ased on patient's age to complete this topic RSV MONOCLONAL ANTIBODY Aged Out No l onger eligible based on patient's age to complete this topic Procedures Procedure Name Priority Date/Time Associated Diagnosis Comments COMPREHENSIVE METABOLIC PANEL STAT 11/06/2022 6:23 PM CDT from Last 3 Months or Most Recently Relevant to Health Maintenance Results * (ABNORMAL) Comprehensive metabolic panel (11/06/2022 6:23 [...] LAB - BLOOD ORDERABL ES [facility] Acute Care Lab [address] Lab (1st floor, no room number) [place] [address], [facility] [phone] from Last 3 Months or Most Recently Relevant to Health Maintenance Care Teams Director Validation Relationship Specialty Start Date End Date Jovan Barr MD [facility] [address] [address] PCP - General Family Medicine 11/06/22
--- OUTSIDE RECORDS SUMMARY | 2023-06-16 18:58 | XMS_ITS | Clinical Summary ---
Author Name Unknown Organization [facility] [employer] Address [place], [place] [address] Care Team Providers Care Recoater Name Role Phone Jovan Barr MD Primary Care Provider [phone] Allergies Active Allergy Reactions Criticality Noted Date Comments Aspirin *Unknown - Follow up needed Medium 11/01/19 23 Milk *Unknown - Follow up needed High 11/01/19 23 Medications Medication Sig Dispensed Refills Start Date End Date Status carvedilol (COREG) 3.125 mg tab as half tablet Take 6.25 mg by mouth two times daily with meals. Active ciprofloxacin HCl (Cipro) 500 mg tablet Take 500 mg by mouth two times daily. Active ferrous sulfate 325 mg delayed release tablet Take 325 mg by mouth once daily. Active insulin aspart, niacinamide, (FIASP FLEXTOUCH U-100 INSULIN SUBQ) Inject subcutaneous. 1 sliding scale dose subcut - useasdirected Active ypzxgkkbljkt-ato-p leelee-FA-vit K (Bariatric Multivitamins) 45 mg iron- 800 mcg-120 mcg cap Take by mouth once daily. Active omeprazole (PRILOSEC) 40 mg Delayed-Release capsule Take 40 mg by mouth once daily. Active rosuvastatin (CRESTOR) 20 mg tablet Take 20 mg by mouth once daily. Active SUMATRIPTAN SUCCINATE ORAL Take by mouth. Take 1 tab at onset of headache, if no relief may repeat 1 tab after at least 2 hours; max 4 tabs/24 hr PO Give at minimum 2hrs apart. Max Dose: 200mg per 24hrs. Active tramadol HCl (TRAMADOL ORAL) Take 50 mg by mouth 2 times daily if needed. Active zolpidem (AMBIEN) 10 mg tablet Take 10 mg by mouth at bedtime if needed for Sleep. Active lisinopriL (PRINIVIL; ZESTRIL) 10 mg tablet Take 10 mg by mouth once daily. Active oxyCODONE (ROXICODONE) 5 mg immediate release tabletIndications: Kidney stone Take 1 Tablet (5 mg) by mouth every 6 hours if needed for Pain. 5 Tablet 2022 Active Social History Tobacco Use Types [...] 2022 7:14 AM CDT Plan of Treatment Upcoming Encounters Date Type Department Care Team (Latest Contact Info) Description 06/26/2023 7:15 AM CDT Hospital Encounter [facility] [address] [place] [address] Carlos Rhoades MD [address] [place] [phone] 06/26/2023 7:15 AM CDT - 06/26/2023 9:56 AM CDT Surgery [facility] [address] [place] [address] Carlos Rhoades MD [address] [phone] PANNICULECTOMY Scheduled Procedures Name Priority Associated Diagnoses Date/Ti me PANNICULECTOMY Elective ABDOMINAL PANNICULUS 06/26/2023 7:15 AM CDT ABDOMINOPLASTY Elective ABDOMINAL PANNICULUS 06/26/2023 7:15 AM CDT Health Maintenance Due Date Last Done Comments Tdap 1981 Depression screening for age 12+ [...] for age 50+ (1 of 2) 2020 COVID-19 vaccine series ( - 2022-24 season) 2022 Influenza for age 50-64 10/12/2023 Pneumococcal series for age 6-64 Aged Out No longer eligible based on patient's age to complete this topic Medical Devices Implanted Type Area Call Center Supervisor Device Identifier Shelf Expiration Date Model / Serial / Lot Stent Uret [id number] Percuflex Hydroplus - [id number] Implanted:Qty: 2 on 2022 by Dori Baer MD at Bilateral: Ureter [facility] 08/05/2025 [id number] / / [id number] Advance Directives * Full Code (Latest Code Status on File) Date Activated Date Inactivated Comments 2022 1:46 PM 2022 4:11 PM Question Answer Comments Code Status Discussion: Reviewed Preferences * Full Code Date Activated Date Inactivated Comments 2022 10:51 AM 2022 1:46 PM Question Answer Comments Code Status Discussion: Unable to Assess Preferences, Provider to review later * Full Code Date Activated Date Inactivated Comments 2022 6:53 AM 2022 10:51 AM Should be d iscussed pre operatively with anesthesia or surgeon Question Answer Comments Code Status Discussion: Not Discussed Care Teams Recoater Relationship Specialty Start Date End Date Jovan Barr MD [address] [place] [address] PCP - General Family Practice 10/18/22
--- OUTSIDE RECORDS SUMMARY | 2023-06-16 18:58 | XMS_ITS | Referral Summary ---
Author Name Unknown Organization [place] Address [facility] [place] [address] Care Team Providers Care Leave Coordinator Name Role Phone Jovan Barr MD Primary [...] - Plan of Treatment Not on file Procedures Procedure Name Priority Date/Time Associated Diagnosis [...] - 15 mmol/L 11/06/2022 7:11 PM CDT LABORATORY Urea Nitrogen 28.0(H) 6.0 - 20.0 mg/dL 11/06/2022 7:11 PM CDT LABORATORY Creatinine 0.83 0.51 - 0.95 mg/dL 11/06/2022 7:11 PM CDT LABORATORY GFR Estimate 84 >60 mL/min/1. 73m2 11/06/2022 7:11 PM CDT [facility] Calcium 9.1 8.6 - 10.0 mg/dL 11/06/2022 7:11 PM CDT LABORATORY Chloride 95(L) 98 - 107 mmol/L 11/06/2022 7:11 PM CDT LABORATORY Glucose 208(H) 70 - 99 mg/dL 11/06/2022 7:11 PM CDT LABORATORY Alkaline Phosphatase 11/06/2022 7:11 PM CDT [facility] Comment:Specimen is hemolyze d which can [...] LAB - BLOOD ORDERABL ES [facility] Lab [address] Lab (1st floor, no room number) [place] [address], [facility] [phone] from Last 3 Months or Most Recently Relevant to Health Maintenance Care Teams Leave Coordinator Relationship Specialty Start Date End Date Jovan Barr MD [facility] [address] [place] [address] PCP - General Family Medicine 11/06/22
== END 2023-06-16 18:49 | disposition home or self-care (01) ==
LOC: LKVREF 18:57
PROVIDERS: PCP Family Medicine; Visit Provider Family Medicine
DX: I10 Essential (primary) hypertension (principal)
CPT/HCPCS: 80053

== ENCOUNTER 2023-08-22 13:36 | Outpatient (CLI) | payer MEDICARE, SELFPAY ==
--- OUTSIDE RECORDS SUMMARY | 2023-08-22 13:38 | XMS_ITS | Referral Summary ---
Author Organization [place] Address [facility] [place] [address] Care Team Providers Care Him Analyst Name Role Phone Jovan Barr MD Primary Care Provider [phone] Allergies Active Allergy Reactions Criticality Noted Date [...] reference intervals. ALT 11/06/2022 7:11 PM CDT LABORATORY Comment: Specimen is hemolyzed which can [...] MD LAB - BLOOD ORDERABL ES LABORATORY [facility] Acute Care Lab [address] Lab (1st floor, no room number) [place] [address], [email or web address] [phone] from Last 3 Months or Most Recently Relevant to Health Maintenance Care Teams Him Analyst Relationship Specialty Start Date End Date Jovan Barr MD [facility] [address] [address] PCP - General Family Medicine 11/06/22
--- OUTSIDE RECORDS SUMMARY | 2023-08-22 13:38 | XMS_ITS | Clinical Summary ---
Author Organization [place] Address [address] [place] [address] Care Team Providers Care Education Department Registrar Name Role Phone Jovan Barr MD Primary Care Provider [phone] Allergies Active Allergy Reactions Criticality Noted Date [...] LAB - BLOOD ORDERABL ES [facility] Acute Care Lab [address] Lab (1st floor, no room number) [place] [address], [facility] [phone] from Last 3 Months or Most Recently Relevant to Health Maintenance Care Teams Education Department Registrar Relationship Specialty Start Date End Date Jovan Barr MD [facility] [address] [address] PCP - General Family Medicine 11/06/22
--- OUTSIDE RECORDS SUMMARY | 2023-08-22 13:38 | XMS_ITS | Clinical Summary ---
Author Organization [employer] [facility] Address [place], [place] [address] Care Team Providers Care Speech Communication Instructor Name Role Phone Jovan Barr MD Primary Care Provider [phone] Allergies Active Allergy Reactions Criticality Noted Date [...] sliding scale dose subcut - useasdirected Active njqplemxaztq-lkj-r leelee-FA-vit K (Bariatric Multivitamins) 45 mg iron- [...] Department Care Team (Latest Contact Info) Description 09/02/2023 12:10 PM CDT Hospital Encounter [facility] [address] [place] [address] Carlos Rhoades MD [address] [phone] 09/02/2023 12:10 PM CDT - 09/02/2023 2:51 PM CDT Surgery [facility] [address] [place] [address] Carlos Rhoades MD [address] [place] [phone] PANNICULECTOMY Scheduled Procedures Name Priority Associated Diagnoses Date/Ti me PANNICULECTOMY Elective ABDOMINAL PANNICULUS 09/02/2023 12:10 PM CDT ABDOMINOPLASTY Elective ABDOMINAL PANNICULUS 09/02/2023 12:10 PM CDT Health Maintenance Due Date Last Done [...] this topic Medical Devices Implanted Type Area Counc[employer]or [employer] Device Identifier Shelf Expiration Date Model / Serial / Lot Stent Uret [id number] Percuflex Hydroplus - [id number] Implanted:Qty: 2 on 2022 by Dori Baer MD at [facility] Bilateral: Ureter [facility] 08/05/2025 [id number] / / [id number] Insurance Payer Benefit Plan / Group Subscriber ID Effective Dates Phone Address Type MEDICARE PART A - HB USE ONLY MEDICARE PART A HB ONLY [id number] 2016-Sebastián t ATTN: CLAIMS [address] [place] [address] MEDICARE PART B - HB USE ONLY MEDICARE PART B HB ONLY [id number] 2016-Sebastián t ATTN: CLAIMS [address] [place] [address] COSMETIC PROCEDURES COSMETIC PROCEDURE HB ONLY 06/26/2023-[facility] [facility] ATTN: BILLING [place] [address] Advance Directives * Full Code (Latest Code [...] Code Status Discussion: Not Discussed Care Teams Speech Communication Instructor Relationship Specialty Start Date End Date Jovan Barr MD [address] [place] [address] PCP - General Family Practice 10/18/22
== END 2023-08-22 13:37 | disposition home or self-care (01) ==
PROVIDERS: PCP Family Medicine; Visit Provider Family Medicine
DX: Z01.818 Encounter for other preprocedural examination (principal); N39.0 Urinary tract infection, site not specified; R79.89 Other specified abnormal findings of blood chemistry
CPT/HCPCS: 80053; 87086; 87186

== ENCOUNTER 2023-10-03 08:34 | Outpatient (CLI) | payer MEDICARE, SELFPAY ==
--- OUTSIDE RECORDS SUMMARY | 2023-10-03 08:36 | XMS_ITS | Clinical Summary ---
Author Organization [place] Address [address] [place] [address] Care Team Providers Care Snuff Grinder Name Role Phone Jovan Barr MD Primary Care Provider [phone] Allergies Active Allergy Reactions Criticality Noted Date [...] (once per calendar year) 2023 INFLUENZA VACCINE (#1) 2023 GLUCOSE 11/06/2025 11/06/2022, 11/06/2022, 11/06/2022 HPV [...] LAB - BLOOD ORDERABL ES [facility] Acute Care Lab [address] Lab (1st floor, no room number) [place] [address], [facility] [phone] from Last 3 Months or Most Recently Relevant to Health Maintenance Care Teams Snuff Grinder Relationship Specialty Start Date End Date Jovan Barr MD [facility] [address] [address] PCP - General Family Medicine 11/06/22
--- OUTSIDE RECORDS SUMMARY | 2023-10-03 08:36 | XMS_ITS | Clinical Summary ---
Author Organization [facility] Address [place], [place] [address] Care Team Providers Care Wood Heel Finisher Name Role Phone Jovan Barr MD Primary Care Provider [phone] Allergies Active Allergy Reactions Criticality Noted Date [...] sliding scale dose subcut - useasdirected Active leywzduyapdx-jgn-mvy n-FA-vit K (Bariatric Multivitamins) 45 mg iron- 800 [...] 10 mg by mouth once daily. Active Advair HFA 115-21 mcg/actuation inhaler Inhale 2 Puffs by mouth two times daily. 05/05/2023 Active Omnipod 5 G6 Intro Kit, Gen 5, crtg 04/16/2023 Active Phentermine HCl 30 mg capsule Take 15 mg by mouth once daily before a meal. Active ondansetron (ZOFRAN ODT) [address] 4 mg on the tongue every 8 hours if needed. 05/05/2023 Active oxyCODONE (ROXICODONE) 5 mg immediate release tabletIndications:Ob esity, unspecified classification, unspecified obesity type, unspecified whether serious comorbidity present Take 1 Tablet (5 mg) by mouth every 6 hours if needed for Pain. 15 Tablet 09/02/2023 Active Encounters Date Type Department Care Team Description 09/02/2023 12:26 PM CDT Anesthesia Event [facility] [address] [place] [address] Rinku Che MD Herriges, Geraldine Ann, CRNA 09/02/2023 12:10 PM CDT - 09/02/2023 2:51 PM CDT Surgery [facility] [address] [place] [address] Carlos Rhoades MD PANNICULECTOMY 09/02/2023 10:08 AM CDT - 09/02/2023 4:55 PM CDT Hospital Encounter [facility] [address] [place] [address] Carlos Rhoades MD Obesity, unspecified classification, unspecified obesity type, unspecified whether serious comorbidity present (Primary Dx); Kidney stone Discharge Disposition: Home Self Care 09/02/2023 Travel from Last 3 Months Social History Tobacco Use Types Packs/Day Years Used Date Smoking Tobacco: Never Smokeless Tobacco: Never Alcohol Use Standard Drinks/Week Comments Not Currently 0 (1 standard drink = 0.6 oz pur e alcohol) Sex and Gender Information Value Date Recorded Sex Assigned at Not on file Gender Identity Not on file Sexual Orientation Not on file Obstetrics History Last Filed Vital Signs Vital Sign Reading Time Taken Comments Blood Pressure 134/85 09/02/2023 4:30 PM CDT Pulse 91 09/02/2023 4:30 PM CDT Temperature 36 ??C (96.8 ??F) 09/02/2023 2:38 PM CDT Respiratory Rate 16 09/02/2023 4:30 PM CDT Oxygen Saturation 100% 09/02/2023 4:30 PM CDT Inhaled Oxygen Concentration - - Weight 73 kg (161 lb) 09/02/2023 10:49 AM CDT Height 170.2 cm (5' 7) 09/02/2023 10:49 AM CDT Body Mass Index 25.22 09/02/2023 10:49 AM CDT Plan of Treatment Health Maintenance [...] (1 of 2) 2020 COVID-19 vaccine series (2022- season) 2022 Influenza for age 50-64 10/12/2023 Pneumococcal series for age 6-64 Aged Out No longer eligible based on patient's age to complete this topic Medical Devices Implanted Type Area M48 M60 Armor Crewman Device Identifier Shelf Expiration Date Model / Serial / Lot Stent Uret [id number] Percuflex Hydroplus - [id number] Implanted:Qty: 2 on 2022 by Dori Baer MD at [facility] Bilateral: Ureter [facility] [place] [place] [facility] 08/05/2025 [id number] / / [id number] Procedures Procedure Name Priority Date/Time Associated Diagnosis Comments GLUCOSE METER Timed 09/02/2023 1:37 PM CDT ENDOTRACHEAL TUBE Routine 09/02/2023 12:49 PM CDT ENDOTRACHEAL TUBE Routine 09/02/2023 12:49 PM CDT ENDOTRACHEAL TUBE Routine 09/02/2023 12:49 PM CDT ABDOMINOPLASTY Elective 09/02/2023 12:06 PM CDT ABDOMINAL PANNICULUS Case Notes TUMESCENT- 2 liters orderedABDOMINAL BINDER PANNICULECTOMY Elective 09/02/2023 12:06 PM CDT ABDOMINAL PANNICULUS Case Notes TUMESCENT- 2 liters orderedABDOMINAL BINDER GLUCOSE METER Timed 09/02/2023 11:03 AM CDT from Last 3 Months Results * (ABNORMAL) GLUCOSE METER (09/02/2023 1:37 PM CDT) Only the most recent of2 resultswithin the time period is included. GLUCOSE METER 115(H) 65 - 100 mg/dL 09/02/2023 1:38 PM CDT [facility] Blood BLOOD SPECIMEN / Unknown 09/02/2023 1:37 PM CDT 09/02/2023 1:38 PM CDT Carlos Rhoades MD CHEMISTRY [facility] [address] [place] [id number], * HCHG TUBE PR1, HCHG STYLET PR1, HCHG MOUTHPIECE PR1 (09/02/2023 12:49 PM CDT) Narrative Cheri Barreto CRNA - 09/02/2023 12:49 PM CDT Cheri Barreto CRNA ? 09/02/2023 12:50 PM Procedure: ETT Patient location during procedure: OR ETT Properties Mask Ventilation: easy Final Technique: direct laryngoscopy Type: straight Location: oral Cuffed: yes Tube Size: 7.0 mm Stylet: yes Laryngoscope Blade: Voss Blade Size: 2 Cormack-Lehane Grade View: 1 Insertion Attempts: 1 Placement Verification: auscultation, end tidal CO2 and symmetrical chest wall movement Assessment: pharynx clear, atraumatic and dentition unchanged Secured at: 22 Measured From: teeth Tooth guard used and removed: yes Difficulty: 0 (not difficult) Notes: Teeth as preop, missing several teeth Rinku Che MD ANESTHESIA PX N OTE ORDERABLES from Last 3 Months Advance Directives * Full Code (Latest Code Status on File) Date Activated Date Inactivated Comments 09/02/2023 10:30 AM 09/02/2023 9:06 PM Question Answer Comments Code Status Discussion: Not Discussed * Full Code Date Activated Date Inactivated Comments 2022 1:46 [...] Code Status Discussion: Not Discussed Care Teams Wood Heel Finisher Relationship Specialty Start Date End Date Jovan Barr MD [address] [place] [address] PCP - General Family Practice 10/18/22
--- OUTSIDE RECORDS SUMMARY | 2023-10-03 08:36 | XMS_ITS | Referral Summary ---
Author Organization [place] Address [facility] [place] [facility] [place] [address] Care Team Providers Care Aging Room Hand Name Role Phone Jovan Barr MD Primary Care Provider [phone] Allergies Active Allergy Reactions Criticality Noted Date [...] MD LAB - BLOOD ORDERABL ES LABORATORY [facility] Acute Care Lab [address] Lab (1st floor, no room number) [place] [address], [facility] [phone] from Last 3 Months or Most Recently Relevant to Health Maintenance Care Teams Aging Room Hand Relationship Specialty Start Date End Date Jovan Barr MD [facility] [address] [address] PCP - General Family Medicine 11/06/22
== END 2023-10-03 08:35 | disposition home or self-care (01) ==
PROVIDERS: PCP Family Medicine; Visit Provider Family Medicine
DX: R79.89 Other specified abnormal findings of blood chemistry (principal); I10 Essential (primary) hypertension; E78.00 Pure hypercholesterolemia, unspecified; E10.40 Type 1 diabetes mellitus with diabetic neuropathy, unspecified; E66.3 Overweight; Z98.84 Bariatric surgery status
CPT/HCPCS: 80053; 82607

== ENCOUNTER 2023-12-09 09:54 | Outpatient (CLI) | payer MEDICARE, SELFPAY ==
--- OUTSIDE RECORDS SUMMARY | 2023-12-09 10:10 | XMS_ITS | Clinical Summary ---
Author Organization [place] Address [address] [place] [address] Care Team Providers Care Drywall Sander Name Role Phone Jovan Barr MD Primary Care Provider [phone] Allergies Active Allergy Reactions Criticality Noted Date Comments Aspirin 11/06/2022 Nsaids 11/06/2022 Social History Tobacco Use Types Packs/Day Years Used Date Smoking Tobacco: Never Assessed Adolescent Education Answer Date Record ed Getting School Help Needed Not on file 11/07 Comments No Sex and Gender Information Value Date Recorded Sex Assigned at Not on file Legal Sex Female 5:36 PM CDT Gender Identity Not on file Sexual Orientation [...] 2010 ZOSTER IMMUNIZATION (1 of 2) 2020 PHQ-2 (once per calendar year) 2023 COVID-19 Vaccine (1 - 2023-2 5 season) 2023 INFLUENZA VACCINE (#1) 2023 GLUCOSE 11/06/2025 11/06/2022, 11/06/2022, 11/06/2022 RSV VACCINE (1 - 1-dose 75+ series) 2045 HPV IMMUNIZATION Aged Out No longer e [...] 6:23 PM CDT 11/06/2022 6:30 PM CDT us Angela Parson MD LAB - BLOOD ORDERABLES Final Res ult RH LABORATORY [facility] Acute Care Lab [address] Lab (1st floor, no room number) [place] [address], [facility] [phone] from Last 3 Months or Most Recently Relevant to Health Maintenance Insurance MEDICARE Care Teams Drywall Sander Relationship Specialty Start Date End Date Jovan Barr MD [facility] [address] [address] PCP - General Family Medicine 11/06/22
--- OUTSIDE RECORDS SUMMARY | 2023-12-09 10:10 | XMS_ITS | Clinical Summary ---
Author Organization [facility] Address [place], [place] [address] Care Team Providers Care Dye House Vat Worker Name Role Phone Jovan Barr MD Primary Care Provider [phone] Allergies Active Allergy Reactions Criticality Noted Date [...] sliding scale dose subcut - useasdirected Active qronvbvjxvdg-vzb-yif n-FA-vit K (Bariatric Multivitamins) 45 mg iron- [...] needed for Pain. 15 Tablet 09/02/2023 Active Social History Tobacco Use Types Packs/Day [...] 09/02/2023 10:49 AM CDT Plan of Treatment Upcoming Encounters Date Type Department Care Team (Latest Contact Info) Description 12/25/2023 2:07 PM DISPENSING OPERATOR Hospital Encounter [facility] [address] [address] Carlos Rhoades MD [address] [address] 12/25/2023 2:07 PM DISPENSING OPERATOR - 12/25/2023 4:03 PM DISPENSING OPERATOR Surgery [facility] [address] [place] [address] Carlos Rhoades MD [address] [address] EXCISION SEROMA CAVITY ABDOMEN Scheduled Procedures Name Priority Associated Diagnoses Date/Ti me EXCISION MASS LOWER EXTREMITY Tier 2 ABDOMINAL SEROMA 12/25/2023 2:07 PM DISPENSING OPERATOR Health Maintenance Due Date Last Done Comments [...] (1 of 2) 2020 COVID-19 vaccine series (2023- season) 2023 Influenza for age 50-64 10/12/2023 Pneumococcal series for age 6-64 Aged Out No longer eligible based on patient's age to complete this topic Medical Devices Implanted Type Area Water Hydrant Installer Device Identifier Shelf Expiration Date Model / Serial / Lot Stent Uret [id number] Percuflex Hydroplus - [id number] Implanted:Qty: 2 on 2022 by Dori Baer MD at [facility] Bilateral: Ureter [facility] 08/05/2025 [id number] / / [id number] Advance Directives * Full Code (Latest Code [...] Code Status Discussion: Not Discussed Care Teams Dye House Vat Worker Relationship Specialty Start Date End Date Jovan Barr MD [address] [place] [address] PCP - General Family Practice 10/18/22
--- OUTSIDE RECORDS SUMMARY | 2023-12-09 10:10 | XMS_ITS | Referral Summary ---
Author Organization [place] Address [address] [place] [address] Care Team Providers Care Armature Coil Winder Name Role Phone Jovan Barr MD Primary Care Provider [phone] Allergies Active Allergy Reactions Criticality Noted Date [...] BLOOD ORDERABLES Final Res ult RH LABORATORY [facility] Acute Care Lab [address] [facility] Lab (1st floor, no room number) [place] [address], [facility] [phone] from Last 3 Months or Most Recently Relevant to Health Maintenance Insurance MEDICARE Care Teams Armature Coil Winder Relationship Specialty Start Date End Date Jovan Barr MD [facility] [address] [id number] PCP - General Family Medicine 11/06/22
== END 2023-12-09 09:55 | disposition home or self-care (01) ==
PROVIDERS: PCP Family Medicine; Visit Provider Family Medicine
DX: Z01.818 Encounter for other preprocedural examination (principal); E10.40 Type 1 diabetes mellitus with diabetic neuropathy, unspecified; I10 Essential (primary) hypertension; R79.89 Other specified abnormal findings of blood chemistry; F41.9 Anxiety disorder, unspecified
CPT/HCPCS: 80053; 83735

== ENCOUNTER 2024-01-28 13:15 | Outpatient (CLI) | payer MEDICARE, SELFPAY ==
--- NOTE | 2024-01-28 14:00 | CRLHL7_ITS ---
For Patients: As a result of the Century Cures Act, medical imaging exams and procedure reports are released immediately into your electronic medical record. You may view this report before your referring provider. If you have questions, please contact your health care provider. DXA BONE MINERAL DENSITY STUDY Current height (in): 67.0. Weight (lb): 154.0. Menopause age: 53. Ethnicity: White. Reason for exam: Asymptomatic menopausal state. History of gastric bypass. Type 1 diabetes. 1. Have you had a previous hip or vertebral fracture? No. 2. Have you had any fractures during your adult life which did not result from significant trauma (e.g., auto accident)? No. 3. Did either of your parents have a hip fracture? No. 4. Do you smoke? No. 5. Have you ever taken Glucocorticoids? No. 6. Do you have rheumatoid arthritis? Yes. 7. Do you have secondary osteoporosis? No. 8. Do you drink 3 or more alcoholic drinks per day? No. 9. Are you being treated for osteoporosis? No. 10. Have you ever taken any of the following medications: Actonel, Evista, Fosamax, Miacalcin, Reclast, Boniva, Forteo, HRT (i.e. estrogen/hormone therapy), Protelos, Prolia, Vitamin D, Calcium, other ??? please specify. ANSWER: No. 11. Do you have any of the following medical conditions: Anorexia or bulimia, asthma or emphysema, end stage renal disease, hyperparathyroidism, any seizure disorders, cancer, inflammatory bowel diseases, hysterectomy, other ??? please specify. ANSWER: No. 12. What was your maximum height (inches)? 67. 13. Do you perform weight bearing exercise regularly? No. 14. Do you regularly consume dairy products? Yes. 15. Do you drink caffeinated beverages? No. 16. At what age did your period start? 12. 17. Are you premenopausal? Yes. 18. How many full-term pregnancies have you had? 4. 19. Have you ever missed your period for more than 6 months in a row (not including or menopause)? No. TECHNIQUE: Bone mineral density study was performed using the FLX Micro. FINDINGS: The results of the study expressed as bone mineral density (BMD) are as follows: Lumbar spine L1 to L4: BMD: 0.938 g/cm2. T-score: -1.0. Z-score: 0.0 Neck Left: BMD: 0.778 g/cm2. T-score: -0.6. Z-score: 0.3 Right: BMD: 0.760 g/cm2. T-score: -0.8. Z-score: 0.1 Total Left: BMD: 0.967 g/cm2. T-score: 0.2. Z-score: 0.8 Right: BMD: 1.017 g/cm2. T-score: 0.6. Z-score: 1.2 IMPRESSION: Normal bone density. Carlos Chen M.D. Diagnostic Radiologist [email or web address] Transcribed: 10:12 am DW/Dictated by: Carlos Chen MD @ 01/29/2024 9:48:00 AM (Electronically Signed)
--- NOTE | 2024-01-28 14:40 | CRLHL7_ITS ---
For Patients: As a result of the Century Cures Act, medical imaging exams and procedure reports are released immediately into your electronic medical record. You may view this report before your referring provider. If you have questions, please contact your health care provider. BILATERAL SCREENING MAMMOGRAM WITH COMPUTER-AIDED DETECTION AND TOMOSYNTHESIS TECHNIQUE: CC and MLO views were obtained. These mammographic images have been obtained using full-field digital technique. These mammographic images were interpreted with the benefit of computer-aided detection. Breast Tomosynthesis was used in this interpretation. COMPARISON FILM: 06/03/22, 02/20/21, 08/05/18. FINDINGS: There are scattered areas of fibroglandular density. IMPRESSION: There is no radiographic evidence for malignancy. ASSESSMENT: BI-RADS Category 1: Negative RECOMMENDATION: Routine screening mammogram in 1 year. A lay language report of this examination will be provided to the patient. Carlos Chen M.D. Diagnostic Radiologist [email or web address] SP/Dictated by: Carlos Chen MD @ 01/29/2024 12:22:00 PM (Electronically Signed)
== END 2024-01-28 13:16 | disposition home or self-care (01) ==
PROVIDERS: PCP Family Medicine; Visit Provider Family Medicine
DX: Z12.31 Encounter for screening mammogram for malignant neoplasm of breast (principal); Z13.820 Encounter for screening for osteoporosis; Z78.0 Asymptomatic menopausal state; E11.40 Type 2 diabetes mellitus with diabetic neuropathy, unspecified; Z98.84 Bariatric surgery status
CPT/HCPCS: 77063; 77067; 77080

== ENCOUNTER 2024-02-27 18:01 | Outpatient (CLI) | payer MEDICARE, SELFPAY | END 2024-02-27 18:02 | disposition home or self-care (01) | LOC: NFLDREF 02-29 16:42 | PROVIDERS: PCP Family Medicine; Referring Provider Family Medicine; Visit Provider Family Medicine | DX: N39.0 Urinary tract infection, site not specified (principal); B95.7 Other staphylococcus as the cause of diseases classified elsewhere | CPT/HCPCS: 87086; 87186 ==

== ENCOUNTER 2024-03-08 08:15 | Outpatient (RCR) | payer MEDICARE, SELFPAY ==
--- NOTE | 2024-02-09 09:35 | PT.OPE ---
PT [facility] PT [facility] Outpatient Eval Start: 01/29/24 11:10 Freq: Status: Active Protocol: Document 02/09/24 09:15 ALBA (Rec: 02/09/24 09:32 ALBA [id number]) E-signed By Renato Lewis, PT, ATC Physical Therapy Outpatient Evaluation Insurance Information Insurance Name Medicare B Medical Diagnosis <54/2 Cervicalgia R51.0 Headache, unspecified Treating Diagnosis Headaches Cervical neck pain+stiffness, right Referring MD Hirsch Subjective Subjective Lynda reports a six week history of progressively worsening headaches. Cannot place an action or event to the origin. PMHx does include PACHECO's but they never lasted as long or were as intense as the day progressed. Currently, she awakens with a PACHECO of 2/10 that worsens through the day peaking at 9-10/10 by early evening. These PACHECO's also awaken her multiple times each evening. In addition, R sided upper shoulder and neck soreness/stiffness began about 3 weeks ago. She also notices intermittent episodes of R UE paresthesia (elbow to hand). She was prescribed Cyclobenzaprine yet this has not seemed to make a change in symptom presence or intensity . Date of Last Physician Visit 01/20/24 Current Work Status Unemployed Occupation Disabled, secondary to bilateral LE neuropathies. Diabetes Type 1 Precautions Weight Bearing Status Full Weight Bearing Therapy Limitations/Systems Review Not Limited Objective Range of Motion Cervical ROM is WNL's, end range R Rotation, R side bending and Flexion create soreness in the R side of the neck and upper shoulder. Strength R and L UE's 5/5 for all joints and patterns. Palpation Moderate increase in soft tissue tone/firmness in the R upper trapezius, levator scapulae and cervical paraspinal muscles. Mild tightness in suboccipital musculature. Posture Stands with forward head, rounded shoulders, increased thoracic kyphosis, Dowager's Hump at CT junction. Other/Pertinent Objective Hypomobility in mid to lower vertebral segments. Assessment Assessment/Impression Lynda is a pleasant 53 year old woman referred to PT because of headaches and R sided upper shoulder soreness. The examination found both tightness in the soft tissues as well as vertebral segments ultimately effecting her osteokinematic mobility. Skilled PT is recommended to address these areas of increased muscle tension and vertebral hypomobility. A strength program focused on posterior shoulder, interscapular and upper back strengthening is advised to address her posture bias into the forward direction. She appears to be a good candidate for PT and willing to participate in her responsibly outside of care. Primary Functional Limitations Concentration ADL's Sleep Plan of Care Rehabilitation Potential Good Physical Therapy Goals 1.Independent and correct performance with her HEP for strength work and stretching. 2.Able to recognize and demonstrate improved upper thoracic and cervical posture positions in standing and sitting. 3.Decrease PACHECO intensity x 50% to permit improved ability for all ADL's. Coordination/Communication With Referral Source Treatment Plan/Direct Interventions Ice/Cold/Vasopneumatic,Joint Mobilization,Manual Therapy, Self-Care/Home Management, Therapeutic Activities, Therapeutic Exercises Patient Will Be Discharged From Therapy Independent w/HEP, Independently Progressing Evaluation Billing Untimed Code Treatment Minutes 30 PT Eval No Charge No Complexity Low Certification Information Initial Certification Date 02/09/24 Ending Certification Date 05/09/24 Provider Signature Required Yes Provider Signature Shows Agreement With POC & Medical Necessity Physician NPI Number Write NPI# Here Physician Comment/Change : Physician Signature & Date Requested Please Sign/Date Here
== END 2024-07-06 23:59 | disposition home or self-care (01) ==
PROVIDERS: PCP Family Medicine; Visit Provider Family Medicine
DX: M54.2 Cervicalgia (principal); R51.9 Headache, unspecified; Z51.89 Encounter for other specified aftercare
CPT/HCPCS: 97140; 97161

== ENCOUNTER 2024-03-08 13:51 | Outpatient (CLI) | payer MEDICARE, SELFPAY | END 2024-03-08 13:52 | disposition home or self-care (01) | LOC: LKVREF 13:53 | PROVIDERS: PCP Family Medicine; Visit Provider Family Medicine | DX: E78.00 Pure hypercholesterolemia, unspecified (principal); I10 Essential (primary) hypertension; N20.0 Calculus of kidney; R31.9 Hematuria, unspecified | CPT/HCPCS: 80053; 80061; 87086 ==

== ENCOUNTER 2024-03-11 13:24 | Outpatient (CLI) | payer MEDICARE, SELFPAY ==
--- NOTE | 2024-03-11 14:00 | CRLHL7_ITS ---
For Patients: As a result of the Century Cures Act, medical imaging exams and procedure reports are released immediately into your electronic medical record. You may view this report before your referring provider. If you have questions, please contact your health care provider. Indication: HEMATURIA, H/O NEPHROLITHIASIS Technique: CT abdomen/pelvis without and with IV contrast utilizing 100 mL Isovue 370 Comparison: None Findings: Lower thorax: Unremarkable Abdomen/pelvis: Status post cholecystectomy. No significant biliary ductal dilatation. The liver is unremarkable in appearance. Simple appearing cyst in the spleen measuring approximately 1.3 centimeters. Atrophic pancreas. Likely subcentimeter low-density left adrenal nodule measuring proximally 1 Hounsfield unit on unenhanced exam, incompletely characterized on this study, but likely a benign adenoma. Bilateral kidneys are normal in size and perfuse and excrete in a normal fashion. No suspicious solid renal mass. Subcentimeter simple appearing left adrenal cyst. There is a nonobstructing 7 millimeter calculus at the lower pole of the right kidney and a nonobstructing 4 millimeter calculus at the upper pole of the right kidney. There is some faint fat stranding seen about the right renal pelvis, may be sequela of prior passed stone. There is no hydroureteronephrosis. Tortuosity of the proximal right ureter. The bladder is unremarkable in appearance. The uterus and bilateral adnexa are within normal limits in appearance. Likely simple appearing right ovarian/adnexal cyst measuring approximately 1.3 centimeters. No suspicious adnexal lesions. Tiny hiatal hernia. Postsurgical changes of Greta-en-Y gastric bypass surgery. There is no evidence of bowel obstruction or inflammation. The appendix is normal in appearance. No free air, free fluid, or abscess. No abdominopelvic lymphadenopathy. There are few pelvic phleboliths; otherwise, the vasculature is unremarkable. Soft tissue/musculoskeletal: Small fat containing periumbilical hernias. Scarring in the subcutaneous fat of the lower abdomen/pelvis. No acute fracture or malalignment. Grade 1 anterolisthesis of L5 on S1 secondary to L5 pars defects. L4 vertebral body hemangioma. Impression: 1. Nonobstructing right renal calculi. 2. No hydroureteronephrosis bilaterally. 3. Faint fat stranding seen about the right renal pelvis, may be sequela of prior passed stone versus pyelonephritis. 4. Additional incidental findings as detailed above. Please note that all CT scans at this facility use dose modulation, iterative reconstruction, and/or weight-based dosing when appropriate to reduce radiation dose to as low as reasonably achievable. Dictated by Joe Handy MD @ 03/12/2024 11:09:07 AM (Electronically Signed)
== END 2024-03-11 13:25 | disposition home or self-care (01) ==
LOC: CT 13:26
PROVIDERS: PCP Family Medicine; Visit Provider Family Medicine
DX: R31.9 Hematuria, unspecified (principal); R79.89 Other specified abnormal findings of blood chemistry; E10.40 Type 1 diabetes mellitus with diabetic neuropathy, unspecified; E78.00 Pure hypercholesterolemia, unspecified; I10 Essential (primary) hypertension
CPT/HCPCS: 74178; Q9967

== ENCOUNTER 2024-04-12 10:03 | Outpatient (CLI) | payer MEDICARE, SELFPAY | END 2024-04-12 10:04 | disposition home or self-care (01) | LOC: NFLDREF 04-13 01:25 | PROVIDERS: PCP Family Medicine; Referring Provider Family Medicine; Visit Provider Family Medicine | DX: N39.0 Urinary tract infection, site not specified (principal); B95.7 Other staphylococcus as the cause of diseases classified elsewhere | CPT/HCPCS: 87086; 87186 ==

== ENCOUNTER 2024-05-25 08:21 | Outpatient (CLI) | payer MEDICARE, SELFPAY | END 2024-05-25 08:22 | disposition home or self-care (01) | LOC: NFLDREF 05-28 15:49 | PROVIDERS: PCP Family Medicine; Referring Provider Family Medicine; Visit Provider Family Medicine | DX: E10.40 Type 1 diabetes mellitus with diabetic neuropathy, unspecified (principal); I10 Essential (primary) hypertension; R82.90 Unspecified abnormal findings in urine; Z79.4 Long term (current) use of insulin | CPT/HCPCS: 80053; 82043; 82570; 87086 ==

== ENCOUNTER 2024-06-15 12:28 | Outpatient (CLI) | payer MEDICARE, SELFPAY | END 2024-06-15 12:29 | disposition home or self-care (01) | PROVIDERS: PCP Family Medicine; Visit Provider Family Medicine | DX: Z11.3 Encounter for screening for infections with a predominantly sexual mode of transmission (principal); Z11.4 Encounter for screening for human immunodeficiency virus [HIV]; R31.9 Hematuria, unspecified; B37.0 Candidal stomatitis | CPT/HCPCS: 86703; 87086; 87491; 87591 ==

== ENCOUNTER 2024-06-28 14:13 | Outpatient (CLI) | payer MEDICARE, SELFPAY | END 2024-06-28 14:14 | disposition home or self-care (01) | LOC: LKVREF 14:14 | PROVIDERS: PCP Family Medicine; Visit Provider Family Medicine | DX: N39.0 Urinary tract infection, site not specified (principal) | CPT/HCPCS: 87086 ==

== ENCOUNTER 2024-10-18 15:17 | Outpatient (CLI) | payer MEDICARE, SELFPAY | END 2024-10-18 15:18 | disposition home or self-care (01) | PROVIDERS: PCP Family Medicine; Visit Provider Family Medicine | DX: E10.40 Type 1 diabetes mellitus with diabetic neuropathy, unspecified (principal); E78.00 Pure hypercholesterolemia, unspecified; I10 Essential (primary) hypertension; R82.90 Unspecified abnormal findings in urine; Z87.440 Personal history of urinary (tract) infections | CPT/HCPCS: 80053; 82671; 83001; 83002; 84144; 87086 ==

== ENCOUNTER 2025-01-07 14:18 | Outpatient (CLI) | payer MEDICARE, SELFPAY | END 2025-01-07 14:19 | disposition home or self-care (01) | PROVIDERS: PCP Family Medicine; Visit Provider Family Medicine | DX: R10.9 Unspecified abdominal pain (principal); D64.9 Anemia, unspecified; E11.40 Type 2 diabetes mellitus with diabetic neuropathy, unspecified; F41.8 Other specified anxiety disorders; I10 Essential (primary) hypertension; N95.1 Menopausal and female climacteric states | CPT/HCPCS: 80076; 82043; 82306; 82570; 82607; 82728; 83540; 83550; 83690; 87086 ==